=== PATIENT | female | born 1950 | race Hispanic/Latino ===

== ENCOUNTER 2017-09-26 11:51 | Emergency (ER) | payer MEDICARE, OTHER ==
[~2017-09-26 11:51] MED LIST: CHOL200074 PO; CYAN50008 PO; ENAL10TA PO; GEMF600T3 PO; INSLAN SQ; LORA10CA PO; MAGOX PO; METF10004 PO; PIOG30TA10 PO; UBID100C10 PO
== END 2017-09-26 14:32 | disposition home or self-care (01) ==
LOC: EDH 11:51
DX: M25.561 Pain in right knee (principal); E11.9 Type 2 diabetes mellitus without complications; Z90.710 Acquired absence of both cervix and uterus; Z98.890 Other specified postprocedural states
CPT/HCPCS: 73562

== ENCOUNTER → 2019-10-24 | Outpatient (CLI) | payer OTHER ==
[~2019-10-24] MED LIST changes: -GEMF600T3 PO; +GEMF600T5 PO; +METF-446 PO; -METF10004 PO
== END | disposition home or self-care (01) ==
LOC: RAH 10:00
PROVIDERS: ATTEND Internal Medicine
DX: N63.0 Unspecified lump in unspecified breast (principal); R92.8 Other abnormal and inconclusive findings on diagnostic imaging of breast
CPT/HCPCS: 76641; 77066

== ENCOUNTER 2020-04-25 13:54 | Inpatient (IN) | payer OTHER ==
[~2020-04-25] VITALS: Ht 157.5 cm; Wt 91.2 kg
[~2020-04-25 13:54] MED LIST changes: -ENAL10TA PO; +ENAL10TA18 PO
[2020-04-25 14:39] LABS: EOSINOPHILS % (AUTO) 0.4 % (0.0-8.0); HEMATOCRIT 32.6 % (36-48); MEAN CORPUSCULAR HEMOGLOBIN 29.4 pg (27.0-33.0); MEAN CORPUSCULAR HGB CONC 32.8 g/dL (32.0-36.0); MEAN CORPUSCULAR VOLUME 89.6 fL (79-99); MONOCYTES % (AUTO) 5.6 % (3.0-13.0); NEUTROPHILS % (AUTO) 74.3 % (40.0-77.0); PLATELET COUNT (AUTO) 197 K/uL (130-400); RED BLOOD CELL COUNT(AUTO) 3.64 MIL/uL (4.00-5.50); RED CELL DISTRIBUTION WIDTH 13.8 % (11.0-15.5); WHITE BLOOD COUNT (AUTO) 2.7 K/uL (4.8-10.8)
[2020-04-25 14:48] LABS: INR 0.93 (0.85-1.15); PARTIAL THROMBOPLASTIN TIME 37.5 SEC (26.3-35.5); PROTHROMBIN TIME 10.1 SEC (9.6-11.6)
[2020-04-25 15:00] LABS: CARBON DIOXIDE 22 mmol/L (21-32); CHLORIDE 100 mmol/L (101-111); GLOMERULAR FILTR. RATE CALC 58 mL/min (>60); GLUCOSE,RANDOM 284 mg/dL (70-105); POTASSIUM 4.2 mmol/L (3.5-5.1); SODIUM SERUM 134 mmol/L (136-145); UREA NITROGEN, BLOOD 16 mg/dL (7-18)
[2020-04-25] MEDS ORDERED: REMDESIVIR (EUA) 520 200 MG in SODIUM CHLORIDE 0.9% 250 ML IV ONE (15:00)
[2020-04-25] MEDS ORDERED: DiphenhydrAMINE HCL 50 MG/ML VIAL ONE (15:07)
[2020-04-25] MEDS ORDERED: DEXAMETHASONE SOD PHOSPHATE 10MG/ML 1ML VIAL ONE (15:07)
[2020-04-25] MEDS ORDERED: DOXYCYCLINE 100MG+NS 250ML 250 ML IV ONE (15:08)
[2020-04-25] MEDS ORDERED: PROCHLORPERAZINE EDISYLATE 10 MG/2 ML VIAL ONE (15:09)
[2020-04-25 15:10] LABS: ALANINE AMINOTRANSFERASE 25 U/L (12-78); ALBUMIN 3.6 g/dL (3.5-5.0); ASPARTATE AMINOTRANSFERASE 36 U/L (10-37); BILIRUBIN,TOTAL 0.3 mg/dL (0.2-1.0); CREATINE KINASE, TOTAL 44 U/L (21-232); TROPONIN I < 0.04 ng/mL (0.00-0.06)
[2020-04-25 15:32] LABS: MYOGLOBIN 31 ng/mL (10-92)
[2020-04-25 15:36] LABS: ABG BASE EXCESS -6.2 mmol/L (-2.0-3.0); ABG HCO3 18.4 mmol/L (21.0-28.0); ABG OXYGEN SATURATION 98.6 % (95.0-99.0); ABG PCO2 34 mmHg (32-45)
[2020-04-25 16:37] LABS: APPEARANCE,URINE Clear (CLEAR); BILIRUBIN,URINE Negative (NEGATIVE); COLOR,URINE Yellow (YELLOW); GLUCOSE, URINE (UA) Negative (NEGATIVE); KETONES,URINE Negative (NEGATIVE); LEUKOCYTE ESTERASE ,URINE Negative (NEGATIVE); NITRATE,URINE Negative (NEGATIVE); OCCULT BLOOD,URINE Negative (NEGATIVE); PH,URINE 5.5 (5.0-8.0); PROTEIN,URINE Negative (NEGATIVE); UROBILINOGEN,URINE 0.2 mg/dL (0.2-1.0)
[2020-04-25 16:46] LABS: BAND NEUTROPHILS % (MANUAL) 17 % (0-2); LYMPHOCYTES % (MANUAL) 16 % (22-44); MAN.DIFF COMMENT-IMPRESSION MANUAL DIFFERENTIAL; MONOCYTES % (MANUAL) 4 % (2-9); SEGMENTED NEUTROPHILS % 63 % (40-70)
[2020-04-25] MEDS ORDERED: IOHEXOL-350 75 ML VIAL IV ONE (19:14)
[2020-04-25] MEDS ORDERED: ENOXAPARIN SODIUM 40 MG/0.4 ML SYRINGE SQ ONE (20:04)
[2020-04-25] MEDS ORDERED: FAMOTIDINE 20MG TAB 20 MG TAB ONE (20:04)
[2020-04-25] MEDS ORDERED: INSULIN HUMULIN R 100 UNIT/ML 3ML ONE (20:22)
--- NOTE | 2020-04-25 20:50 | NUR ---
PT ARRIVED TO FLOOR AT THIS TIME. NO DISTRESS NOTED. PT AMBULATING. ON NASAL CANNULA 2LPM.
[2020-04-25 21:16] VITALS: BP 135/75
[2020-04-25 23:43] VITALS: BP 141/63
[2020-04-26] MEDS ORDERED: ACET-2247 PO (02:36)
[2020-04-26] MEDS ORDERED: METF-446 PO (02:36)
[2020-04-26] MEDS ORDERED: DOCU-116 PO (02:36)
[2020-04-26] MEDS ORDERED: LORA10TA60 PO (02:36)
[2020-04-26] MEDS ORDERED: PIOG30TA70 PO (02:36)
[2020-04-26] MEDS ORDERED: MULT-1296 PO (02:36)
[2020-04-26] MEDS ORDERED: ATOR10 PO (02:36)
[2020-04-26] MEDS ORDERED: CYAN250014 PO (02:36)
[2020-04-26] MEDS ORDERED: PANT40TA54 PO (02:36)
[2020-04-26] MEDS ORDERED: DULO20CA18 PO (02:36)
[2020-04-26] MEDS ORDERED: GEMF600T5 PO (02:36)
[2020-04-26] MEDS ORDERED: GLUCAGON 1MG KIT 1 MG ML IM PRN (03:00)
[2020-04-26] MEDS ORDERED: DEXTROSE 50%-WATER 50 ML DISP.SYRIN IV PRN (03:00)
[2020-04-26 04:40] VITALS: BP 103/64
[2020-04-26] MEDS ORDERED: INSULIN R PO SS1 SQ SCH (07:30)
[2020-04-26 08:00] VITALS: BP 141/77
[2020-04-26] MEDS ORDERED: ENOXAPARIN SODIUM 30 MG/0.3 ML SQ SCH (09:00)
[2020-04-26] MEDS: DEXAMETHASONE SOD PHOSPHATE 4 MG/ML 1ML VIAL IVP SCH (09:17)
[2020-04-26] MEDS: FAMOTIDINE 20MG TAB 20 MG TAB PO SCH (09:17)
[2020-04-26 11:30] VITALS: BP 108/60
[2020-04-26] MEDS ORDERED: LIDOCAINE HCL-MPF 1% 2ML VIAL IV PRN ×2 (13:30)
[2020-04-26] MEDS ORDERED: PHARMACY COMMUNICATION MISC SCH (13:30)
[2020-04-26] MEDS ORDERED: POTASSIUM CHLORIDE 20MEQ/100ML 100 ML IV PRN ×2 (13:30)
[2020-04-26] MEDS ORDERED: POTASSIUM CHLORIDE 10% ELIXIR 20 MEQ/15 ML UDCUP PO PRN (13:30)
[2020-04-26] MEDS: ACETAMINOPHEN 325 MG TAB PO SCH (14:00)
[2020-04-26] MEDS ORDERED: DOXYCYCLINE 100MG+NS 250ML 250 ML IV SCH (14:30)
[2020-04-26] MEDS ORDERED: COMPOUND IV REFRIGERATED 1 EACH IVSOLN MISC PRN (15:00)
[2020-04-26] MEDS ORDERED: REMDESIVIR (EUA) 520 200 MG in SODIUM CHLORIDE 0.9% 250 ML IV ONE (15:00)
[2020-04-26 15:30] VITALS: BP 110/66
[2020-04-26] MEDS: CEFEPIME HCL 1 GM VIAL IVP SCH ×2 (16:13→22:24)
[2020-04-26] MEDS: DOXYCYCLINE HYCLATE 100 MG TABLET PO SCH ×2 (16:14→20:11)
[2020-04-26] MEDS: INSULIN HUMULIN R 100 UNIT/ML 3ML SQ SCH ×2 (16:30→22:45)
--- NOTE | 2020-04-26 17:30 | NUR ---
SPOKE TO SPOUSE FOR DC PLANNING BRANDI OSBORN STATES PATIENT IS INDEPENDENT, DRIVES, NO DME EXCEPT A BP MACHINE AND A GLUCOMETER- STATES SEES DR. KURT Schrader 3 MOS, NO DC NEEDS ANTICIPATED. SON IS A NURSE AND JUST RECENTLY DISCHARGED FROM HOSPITAL FOR [facility], AND WILL CARE FOR PT AT DISCHARGE. DCP HOME, CM TO FOLLOW Addendum: 04/27/20 at 0946 by JOVANA DONATO RN CM Amended: Links added.
[2020-04-26] MEDS: ATORVASTATIN CALCIUM 10 MG TABLET PO SCH (20:11)
[2020-04-26] MEDS: ENOXAPARIN SODIUM 60 MG/0.6 ML SQ SCH (20:12)
[2020-04-26] MEDS: GEMFIBROZIL 600 MG TABLET PO SCH (21:16)
[2020-04-26 21:37] VITALS: BP 123/72
[2020-04-26] MEDS: ACETAMINOPHEN 325 MG TAB PO PRN (22:49)
--- NOTE | 2020-04-27 00:13 | NUR ---
C/O Headache at 2230 Patient reported having a headache and asked for some Tylenol. She said that her pain level was at a 5. She denies any other problems at this time.
[2020-04-27] MEDS ORDERED: SODIUM CHLORIDE 0.9% 500ML 500 ML IV ONE (02:49)
[2020-04-27] MEDS ORDERED: METHYLPREDNISOLONE SOD SUCC 40MG/ML 1ML ONE (03:47)
[2020-04-27 04:29] VITALS: BP 114/60
[2020-04-27] MEDS: ACETAMINOPHEN 325 MG TAB PO PRN (05:15)
[2020-04-27] MEDS: CEFEPIME HCL 1 GM VIAL IVP SCH ×3 (05:29→21:13)
[2020-04-27] MEDS: INSULIN HUMULIN R 100 UNIT/ML 3ML SQ SCH ×4 (05:31→21:13)
--- NOTE | 2020-04-27 05:32 | NUR ---
Fresh Frozen Plasma, 1 unit administered Patient received 1 of her 2 units of Fresh Frozen Plasma. She tolerated it well. Rubber Cutter was busy and could not go after the second unit. Will let the 7A-7P nurse know, so that it can be given on days. Patient c/o her head hurting and asked for more Tylenol. I explained the amount of Tylenol that is allowed per day and what is scheduled. 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
[2020-04-27] MEDS: PHARMACY COMMUNICATION MISC SCH (06:00)
--- NOTE | 2020-04-27 06:59 | NUR ---
Patient transferred to Room 403 Patient was transferred to room 403 at the second shift supervisor's request. No c/o's or distress noted at this time. Report was given to the night nurse to give to the 7A-7P nurse hat will be arriving.
[2020-04-27 07:00] VITALS: BP 116/68
[2020-04-27 07:26] LABS: HEMATOCRIT 27.8 % (36-48); MEAN CORPUSCULAR HEMOGLOBIN 29.5 pg (27.0-33.0); MEAN CORPUSCULAR HGB CONC 33.5 g/dL (32.0-36.0); MEAN CORPUSCULAR VOLUME 88.3 fL (79-99); RED BLOOD CELL COUNT(AUTO) 3.15 MIL/uL (4.00-5.50); RED CELL DISTRIBUTION WIDTH 13.3 % (11.0-15.5); WHITE BLOOD COUNT (AUTO) 4.2 K/uL (4.8-10.8)
[2020-04-27 07:42] LABS: CARBON DIOXIDE 21 mmol/L (21-32); CHLORIDE 100 mmol/L (101-111); CREATININE 0.8 mg/dL (0.5-1.5); GLOMERULAR FILTR. RATE CALC 76 mL/min (>60); GLUCOSE,RANDOM 212 mg/dL (70-105); PHOSPHORUS 2.3 mg/dL (2.5-4.9); POTASSIUM 3.8 mmol/L (3.5-5.1); SODIUM SERUM 135 mmol/L (136-145); UREA NITROGEN, BLOOD 20 mg/dL (7-18)
[2020-04-27] MEDS: ACETAMINOPHEN 325 MG TAB PO SCH ×3 (09:00→20:39)
[2020-04-27] MEDS: (Duloxetine HCl 20 MG) PO SCH ×2 (09:00→21:30)
[2020-04-27] MEDS: GEMFIBROZIL 600 MG TABLET PO SCH ×2 (09:00→20:39)
[2020-04-27] MEDS: MULTIVITAMIN WITH MINERALS TABLET PO SCH (09:43)
[2020-04-27] MEDS: LORATADINE 10 MG TABLET PO SCH (09:43)
[2020-04-27] MEDS: DOCUSATE SODIUM 100 MG CAP PO SCH (09:43)
[2020-04-27] MEDS: PANTOPRAZOLE SODIUM 40 MG TABLET.DR PO SCH (09:43)
[2020-04-27] MEDS: DEXAMETHASONE SOD PHOSPHATE 4 MG/ML 1ML VIAL IVP SCH (09:43)
[2020-04-27] MEDS: DOXYCYCLINE HYCLATE 100 MG TABLET PO SCH ×2 (09:43→20:36)
[2020-04-27] MEDS: FAMOTIDINE 20MG TAB 20 MG TAB PO SCH (09:43)
[2020-04-27] MEDS: ENOXAPARIN SODIUM 60 MG/0.6 ML SQ SCH ×2 (09:44→20:44)
[2020-04-27 11:00] VITALS: BP 120/71
[2020-04-27] MEDS ORDERED: COMPOUND IV REFRIGERATED 1 EACH IVSOLN MISC PRN (12:15)
[2020-04-27 13:29] LABS: ALBUMIN 3.4 g/dL (3.5-5.0); BILIRUBIN,DIRECT 0.1 mg/dL (0.0-0.3); BILIRUBIN,TOTAL 0.3 mg/dL (0.2-1.0); CREATININE 0.9 mg/dL (0.5-1.5); TOTAL PROTEIN, SERUM 7.3 g/dL (6.0-8.3)
[2020-04-27] MEDS: REMDESIVIR (EUA) 520 100 MG in SODIUM CHLORIDE 0.9% 250 ML IV SCH (15:32)
[2020-04-27 16:00] VITALS: BP 112/70
[2020-04-27 20:00] VITALS: BP 120/69
[2020-04-27] MEDS: ATORVASTATIN CALCIUM 10 MG TABLET PO SCH (20:39)
[2020-04-27 23:41] VITALS: BP 120/69
[2020-04-28] VITALS: BP 124/64
[2020-04-28] MEDS ORDERED: SODIUM CHLORIDE 0.9% 250 ML IV ONE (00:41)
[2020-04-28] MEDS: MAGNESIUM 2GM PREMIX 50ML 50 ML IV PRN (01:10)
[2020-04-28 04:00] VITALS: BP 119/67
[2020-04-28 04:19] LABS: BASOPHILS % (AUTO) 0.3 % (0.0-5.0); HEMATOCRIT 32.8 % (36-48); LYMPHOCYTES % (AUTO) 18.6 % (21.0-51.0); MEAN CORPUSCULAR HEMOGLOBIN 29.4 pg (27.0-33.0); MEAN CORPUSCULAR HGB CONC 33.2 g/dL (32.0-36.0); MEAN CORPUSCULAR VOLUME 88.4 fL (79-99); MONOCYTES % (AUTO) 11.3 % (3.0-13.0); NEUTROPHILS % (AUTO) 68.5 % (40.0-77.0); PLATELET COUNT (AUTO) 297 K/uL (130-400); RED BLOOD CELL COUNT(AUTO) 3.71 MIL/uL (4.00-5.50); RED CELL DISTRIBUTION WIDTH 13.1 % (11.0-15.5); WHITE BLOOD COUNT (AUTO) 3.7 K/uL (4.8-10.8)
[2020-04-28 04:57] LABS: MAGNESIUM 2.1 mg/dL (1.80-2.40); PHOSPHORUS 2.7 mg/dL (2.5-4.9); POTASSIUM 3.4 mmol/L (3.5-5.1)
[2020-04-28] MEDS: INSULIN HUMULIN R 100 UNIT/ML 3ML SQ SCH ×4 (05:32→20:53)
[2020-04-28] MEDS: PHARMACY COMMUNICATION MISC SCH (05:32)
[2020-04-28] MEDS: CEFEPIME HCL 1 GM VIAL IVP SCH ×3 (05:41→20:40)
[2020-04-28] MEDS: ACETAMINOPHEN 325 MG TAB PO SCH ×3 (05:47→20:39)
--- NOTE | 2020-04-28 06:15 | NUR ---
Pt rested throughout the night and received scheduled meds; pts Remdesivir completed at the beginning of shift; stat Mag level drawn = 1.4, Magnesium protocol of 2gm administered; pts current Mag level = 2.1; pt morning blood glucose = 66, pt consumed apple juice, orange juice and nancy crackers and received 0900 Tylenol dose for headache pain; pt is currently resting in bed with eyes closed; no distress noted. LD Li Addendum: 04/28/20 at 0620 by Gil Cardoza RN RN Pt received O2 extension in order to ambulate to bathroom; pts O2 sats remained around 96% throughout the night. LD Li
[2020-04-28 07:00] VITALS: BP 132/73
[2020-04-28] MEDS: (Duloxetine HCl 20 MG) PO SCH ×2 (08:46→20:39)
[2020-04-28] MEDS: DEXAMETHASONE SOD PHOSPHATE 4 MG/ML 1ML VIAL IVP SCH (08:54)
[2020-04-28] MEDS: ENOXAPARIN SODIUM 60 MG/0.6 ML SQ SCH ×2 (08:56→20:40)
[2020-04-28] MEDS: MULTIVITAMIN WITH MINERALS TABLET PO SCH (08:56)
[2020-04-28] MEDS: FAMOTIDINE 20MG TAB 20 MG TAB PO SCH (08:57)
[2020-04-28] MEDS: LORATADINE 10 MG TABLET PO SCH (08:57)
[2020-04-28] MEDS: DOXYCYCLINE HYCLATE 100 MG TABLET PO SCH ×2 (08:57→20:39)
[2020-04-28] MEDS: PANTOPRAZOLE SODIUM 40 MG TABLET.DR PO SCH (08:57)
[2020-04-28] MEDS: DOCUSATE SODIUM 100 MG CAP PO SCH (08:57)
[2020-04-28] MEDS: POTASSIUM CHLORIDE 20 MEQ ERTAB PO PRN (08:57)
[2020-04-28] MEDS: GEMFIBROZIL 600 MG TABLET PO SCH ×2 (09:00→20:39)
[2020-04-28 11:00] VITALS: BP 94/62
--- NOTE | 2020-04-28 11:00 | NUR ---
URINE CX Saima ALLRED NP FOR DR. FAM INFORMED OF URINE CX RESULTS.
[2020-04-28] MEDS: REMDESIVIR (EUA) 520 100 MG in SODIUM CHLORIDE 0.9% 250 ML IV SCH (15:48)
[2020-04-28 16:00] VITALS: BP 105/61
[2020-04-28 20:12] VITALS: BP 108/62
[2020-04-28] MEDS: ATORVASTATIN CALCIUM 10 MG TABLET PO SCH (20:39)
[2020-04-29] VITALS (7 sets, daily range): BP systolic 99–125; BP diastolic 50–72
[2020-04-29] MEDS: PHARMACY COMMUNICATION MISC SCH (05:37)
[2020-04-29] MEDS: INSULIN HUMULIN R 100 UNIT/ML 3ML SQ SCH ×4 (06:04→21:59)
[2020-04-29] MEDS: CEFEPIME HCL 1 GM VIAL IVP SCH ×3 (06:05→20:49)
--- NOTE | 2020-04-29 06:12 | NUR ---
Pt rested throughout the night and denied any complaints and/or pain; pts morning blood glucose = 72, no insulin coverage needed; pt is currently resting in bed with eyes closed, respirations even and unlabored; no distress noted. Guillermo, RN
[2020-04-29] MEDS: DOCUSATE SODIUM 100 MG CAP PO SCH (08:51)
[2020-04-29] MEDS: FAMOTIDINE 20MG TAB 20 MG TAB PO SCH (08:51)
[2020-04-29] MEDS: GEMFIBROZIL 600 MG TABLET PO SCH ×2 (08:51→20:43)
[2020-04-29] MEDS: LORATADINE 10 MG TABLET PO SCH (08:51)
[2020-04-29] MEDS: PANTOPRAZOLE SODIUM 40 MG TABLET.DR PO SCH (08:51)
[2020-04-29] MEDS: DOXYCYCLINE HYCLATE 100 MG TABLET PO SCH ×2 (08:51→20:43)
[2020-04-29] MEDS: MULTIVITAMIN WITH MINERALS TABLET PO SCH (08:52)
[2020-04-29] MEDS: DEXAMETHASONE SOD PHOSPHATE 4 MG/ML 1ML VIAL IVP SCH (08:53)
[2020-04-29] MEDS: ACETAMINOPHEN 325 MG TAB PO SCH ×3 (08:53→20:43)
[2020-04-29] MEDS: ENOXAPARIN SODIUM 60 MG/0.6 ML SQ SCH ×2 (08:54→20:49)
[2020-04-29] MEDS: (Duloxetine HCl 20 MG) PO SCH ×2 (08:55→20:43)
[2020-04-29] MEDS: REMDESIVIR (EUA) 520 100 MG in SODIUM CHLORIDE 0.9% 250 ML IV SCH (15:11)
[2020-04-29] MEDS: ATORVASTATIN CALCIUM 10 MG TABLET PO SCH (20:43)
--- NOTE | 2020-04-29 21:35 | NUR ---
Hosea oncall physician paged at 2100, Ruby Barraza COMPUTER ART INSTRUCTOR returned call at this time and informed of pts BS = 382; physician also informed pts BS drops to 60s-70s in the morning even with a snack throughout the night; physician stated to administer 16u of Humulin R and give pt snack as well to prevent morning hypoglycemia; pt provided with nancy crackers, peanut butter, apple and orange juice and 16u Humulin R administered; no distress noted at this time. Guillermo, RN
[2020-04-30 00:08] VITALS: BP 115/66
[2020-04-30 03:52] LABS: ABG BASE EXCESS -3.5 mmol/L (-2.0-3.0); ABG HCO3 20.7 mmol/L (21.0-28.0); ABG PCO2 35 mmHg (32-45)
[2020-04-30 04:08] VITALS: BP 112/66
[2020-04-30 04:49] LABS: BASOPHILS % (AUTO) 0.2 % (0.0-5.0); EOSINOPHILS % (AUTO) 0.2 % (0.0-8.0); LYMPHOCYTES % (AUTO) 19.2 % (21.0-51.0); MEAN CORPUSCULAR HEMOGLOBIN 29.3 pg (27.0-33.0); MEAN CORPUSCULAR HGB CONC 33.5 g/dL (32.0-36.0); MEAN CORPUSCULAR VOLUME 87.3 fL (79-99); MONOCYTES % (AUTO) 10.3 % (3.0-13.0); PLATELET COUNT (AUTO) 337 K/uL (130-400); RED BLOOD CELL COUNT(AUTO) 3.55 MIL/uL (4.00-5.50); RED CELL DISTRIBUTION WIDTH 13.1 % (11.0-15.5); WHITE BLOOD COUNT (AUTO) 4.4 K/uL (4.8-10.8)
[2020-04-30 05:36] LABS: ALBUMIN 3.4 g/dL (3.5-5.0); BILIRUBIN,DIRECT 0.1 mg/dL (0.0-0.3); BILIRUBIN,TOTAL 0.3 mg/dL (0.2-1.0); MAGNESIUM 1.4 mg/dL (1.80-2.40); POTASSIUM 3.6 mmol/L (3.5-5.1); TOTAL PROTEIN, SERUM 7.8 g/dL (6.0-8.3)
[2020-04-30] MEDS: PHARMACY COMMUNICATION MISC SCH (05:39)
[2020-04-30] MEDS: INSULIN HUMULIN R 100 UNIT/ML 3ML SQ SCH ×4 (05:40→21:55)
[2020-04-30] MEDS: CEFEPIME HCL 1 GM VIAL IVP SCH ×3 (06:06→20:30)
--- NOTE | 2020-04-30 06:56 | NUR ---
Pts BS = 85 this morning and pt received all medications as prescribed, morning insulin held; pt denies any requests and/or complaints at this time. Guillermo RN
[2020-04-30 07:59] VITALS: BP 109/56
[2020-04-30] MEDS: GEMFIBROZIL 600 MG TABLET PO SCH ×2 (08:52→20:30)
[2020-04-30] MEDS: LORATADINE 10 MG TABLET PO SCH (08:52)
[2020-04-30] MEDS: DOXYCYCLINE HYCLATE 100 MG TABLET PO SCH ×2 (08:52→20:30)
[2020-04-30] MEDS: PANTOPRAZOLE SODIUM 40 MG TABLET.DR PO SCH (08:52)
[2020-04-30] MEDS: ENOXAPARIN SODIUM 60 MG/0.6 ML SQ SCH ×2 (08:52→20:30)
[2020-04-30] MEDS: DOCUSATE SODIUM 100 MG CAP PO SCH (08:53)
[2020-04-30] MEDS: FAMOTIDINE 20MG TAB 20 MG TAB PO SCH (08:53)
[2020-04-30] MEDS: MULTIVITAMIN WITH MINERALS TABLET PO SCH (08:53)
[2020-04-30] MEDS: DEXAMETHASONE SOD PHOSPHATE 4 MG/ML 1ML VIAL IVP SCH (08:53)
[2020-04-30] MEDS: ACETAMINOPHEN 325 MG TAB PO SCH ×3 (08:53→20:30)
[2020-04-30] MEDS: (Duloxetine HCl 20 MG) PO SCH ×2 (09:09→20:30)
[2020-04-30 11:38] VITALS: BP 111/66
[2020-04-30] MEDS: MAGNESIUM 2GM PREMIX 50ML 50 ML IV PRN (12:02)
[2020-04-30] MEDS: POTASSIUM CHLORIDE 20 MEQ ERTAB PO PRN ×2 (12:04→13:41)
[2020-04-30] MEDS: REMDESIVIR (EUA) 520 100 MG in SODIUM CHLORIDE 0.9% 250 ML IV SCH (14:27)
[2020-04-30 16:58] VITALS: BP 110/68
[2020-04-30 20:08] VITALS: BP 124/64
[2020-04-30] MEDS: ATORVASTATIN CALCIUM 10 MG TABLET PO SCH (20:30)
[2020-05-01 00:08] VITALS: BP 105/57
[2020-05-01 04:08] VITALS: BP 103/68
[2020-05-01 05:12] LABS: BASOPHILS % (AUTO) 0.4 % (0.0-5.0); HEMATOCRIT 30.3 % (36-48); LYMPHOCYTES % (AUTO) 19.6 % (21.0-51.0); MEAN CORPUSCULAR HEMOGLOBIN 29.5 pg (27.0-33.0); MEAN CORPUSCULAR HGB CONC 33.7 g/dL (32.0-36.0); MEAN CORPUSCULAR VOLUME 87.6 fL (79-99); MONOCYTES % (AUTO) 11.2 % (3.0-13.0); NEUTROPHILS % (AUTO) 63.1 % (40.0-77.0); PLATELET COUNT (AUTO) 316 K/uL (130-400); RED BLOOD CELL COUNT(AUTO) 3.46 MIL/uL (4.00-5.50); RED CELL DISTRIBUTION WIDTH 13.2 % (11.0-15.5); WHITE BLOOD COUNT (AUTO) 4.9 K/uL (4.8-10.8)
[2020-05-01 05:38] LABS: ALBUMIN 3.2 g/dL (3.5-5.0); BILIRUBIN,TOTAL 0.3 mg/dL (0.2-1.0); CREATININE 0.8 mg/dL (0.5-1.5); MAGNESIUM 2.1 mg/dL (1.80-2.40); TOTAL PROTEIN, SERUM 7.3 g/dL (6.0-8.3)
[2020-05-01] MEDS: PHARMACY COMMUNICATION MISC SCH (06:00)
[2020-05-01] MEDS: CEFEPIME HCL 1 GM VIAL IVP SCH ×2 (06:14→14:35)
[2020-05-01] MEDS: INSULIN HUMULIN R 100 UNIT/ML 3ML SQ SCH ×3 (06:15→17:12)
[2020-05-01 08:00] VITALS: BP 99/64
[2020-05-01] MEDS: LORATADINE 10 MG TABLET PO SCH (09:54)
[2020-05-01] MEDS: DOCUSATE SODIUM 100 MG CAP PO SCH (09:54)
[2020-05-01] MEDS: FAMOTIDINE 20MG TAB 20 MG TAB PO SCH (09:54)
[2020-05-01] MEDS: DEXAMETHASONE SOD PHOSPHATE 4 MG/ML 1ML VIAL IVP SCH (09:54)
[2020-05-01] MEDS: PANTOPRAZOLE SODIUM 40 MG TABLET.DR PO SCH (09:54)
[2020-05-01] MEDS: DOXYCYCLINE HYCLATE 100 MG TABLET PO SCH (09:55)
[2020-05-01] MEDS: GEMFIBROZIL 600 MG TABLET PO SCH (09:55)
[2020-05-01] MEDS: ACETAMINOPHEN 325 MG TAB PO SCH ×2 (09:55→14:37)
[2020-05-01] MEDS: ENOXAPARIN SODIUM 60 MG/0.6 ML SQ SCH (09:56)
[2020-05-01] MEDS: MULTIVITAMIN WITH MINERALS TABLET PO SCH (09:56)
[2020-05-01] MEDS: (Duloxetine HCl 20 MG) PO SCH (10:13)
[2020-05-01 12:05] VITALS: BP 103/58
[2020-05-01 14:00] VITALS: BP 136/73
[2020-05-01] MEDS ORDERED: DEXA6TAB PO (15:20)
--- NOTE | 2020-05-01 16:45 | NUR ---
cm note spoke to pt and informed of md orders for o2 continous at home. pt agreeable to loaner O2 tank and concentrator and will return back to hospital when she receives her own equipment informed referral was made to [facility] dimensions. [phone]. pt verbalizes understanding. updated primary nurse Cassie Purcell RN
--- NOTE | 2020-05-01 18:35 | NUR ---
DISCHARGE INSTRUCTIONS PATIENT GIVEN DISCHARGE INSTRUCTION AND VERBALIZED UNDERSTANDING, IV REMOVED WITH CATHETER INTACT AND SITE DRESSED., RESPIRATORY O2 EVALUATION FOR CONTINUOUS O2 FOR HOME USE COMPLETED AND [facility] LOANER TANK AND O2 CONCENTRATOR BROUGHT TO FLOOR AND FORM COMPLETED . PATIENT UNDERSTANDS THE WHEN HER O2 SUPPLIES GET DELIVERED TO HER HOUSE THAT SHE WILL NEED TO RETURN [facility] TANK AND CONCENTRATOR . REVIEWED MEDICATION AND FOLLOW-UP APPOINTMENT THAT SHE WILL NEED TO SCHEDULE DUE TO THE CLINIC BEING CLOSED PRIOR TO DISCHARGE ORDERS RECEIVED. PATIENT DENIED PAIN AT THIS TIME. NEW RX FOR DEXAMETHASONE 6MG PO DAILY NEXT DOSE 05/02/20 SENT TO [facility] ON [address]. NO QUESTIONS OR CONCERNS AT THIS TIME. PATIENT CALLED FOR RIDE
== END 2020-05-01 19:00 | disposition home or self-care (01) | DRG 177 ==
LOC: EDH 13:54 → OBSVTOIN 16:35 → EDHIP 16:35 → 4CH 20:56 → 4AH 04-27 07:00
PROVIDERS: ADMIT Internal Medicine Critical Care Medicine; ATTEND Internal Medicine Critical Care Medicine
PROC: XW13325 Transfusion of Convalescent Plasma (Nonautologous) into Peripheral Vein, Percutaneous Approach, New Technology Group 5 (ICD-10-PCS; principal; 2020-04-25)
PROC: XW033E5 Introduction of Remdesivir Anti-infective into Peripheral Vein, Percutaneous Approach, New Technology Group 5 (ICD-10-PCS; 2020-04-25)
DX: U07.1 COVID-19 (principal); J96.01 Acute respiratory failure with hypoxia; D72.819 Decreased white blood cell count, unspecified; E11.9 Type 2 diabetes mellitus without complications; E78.5 Hyperlipidemia, unspecified; E78.1 Pure hyperglyceridemia; I10 Essential (primary) hypertension; F32.9 Major depressive disorder, single episode, unspecified; Z79.4 Long term (current) use of insulin; Z79.899 Other long term (current) drug therapy
CPT/HCPCS: 36415; 36600; 71045; 71275; 80048; 80053; 80076; 81003; 82550; 82565; 82803; 82947; 82948; 83605; 83735; 83874; 84100; 84145; 84484; 85025; 85027; 85378; 85610; 85730; 86140; 86850; 86900; 86901; 86927; 87040; 87077; 87088; 87186; 87804; 93005; 93970; 94760; 99291; G0378; J0692; J0780; J1100; J1200; J1650; J1815; J2920; J3475; J3490; J7040; J7050; Q9967

== ENCOUNTER → 2021-05-19 | Outpatient (CLI) | payer OTHER ==
[~2021-05-19] MED LIST changes: +ACET-2247 PO; +ATOR10 PO; -CHOL200074 PO; -CYAN50008 PO; +DEXA6TAB PO; +DOCU-116 PO; +DULO20CA18 PO; -ENAL10TA18 PO; -GEMF600T5 PO; +GEMF600T89 PO; -INSLAN SQ; -LORA10CA PO; +LORA10TA60 PO; -MAGOX PO; -METF-446 PO; +MULT-1296 PO; +PANT40TA54 PO; -PIOG30TA10 PO; -UBID100C10 PO
== END | disposition home or self-care (01) ==
LOC: RAH 08:51
PROVIDERS: ATTEND Internal Medicine
DX: N26.1 Atrophy of kidney (terminal) (principal); N18.31 Chronic kidney disease, stage 3a
CPT/HCPCS: 76770; 93975

== ENCOUNTER → 2022-06-10 | Outpatient (CLI) | payer OTHER | END | disposition home or self-care (01) | LOC: RAH 15:14 | PROVIDERS: ATTEND Internal Medicine | DX: R22.42 Localized swelling, mass and lump, left lower limb (principal); E11.42 Type 2 diabetes mellitus with diabetic polyneuropathy; E11.51 Type 2 diabetes mellitus with diabetic peripheral angiopathy without gangrene; I12.9 Hypertensive chronic kidney disease with stage 1 through stage 4 chronic kidney disease, or unspecified chronic kidney disease; E11.22 Type 2 diabetes mellitus with diabetic chronic kidney disease; N18.31 Chronic kidney disease, stage 3a; L60.8 Other nail disorders; D72.819 Decreased white blood cell count, unspecified; E87.5 Hyperkalemia; K76.0 Fatty (change of) liver, not elsewhere classified; K57.31 Diverticulosis of large intestine without perforation or abscess with bleeding; Z71.89 Other specified counseling; Z79.899 Other long term (current) drug therapy | CPT/HCPCS: 76882 ==

== ENCOUNTER → 2022-07-12 | Outpatient (CLI) | payer OTHER ==
[~2022-07-12] MED LIST changes: +GADOTERATE MEGLUMINE 10 MMOL/20 ML VIAL IV ONE
== END | disposition home or self-care (01) ==
LOC: RAH 12:16
PROVIDERS: ATTEND Internal Medicine
DX: R22.9 Localized swelling, mass and lump, unspecified (principal)
CPT/HCPCS: 73723; A9575

== ENCOUNTER 2023-07-05 06:10 | Day surgery (SDC) | payer OTHER ==
[2023-07-05] VITALS (12 sets, daily range): BP systolic 115–149; BP diastolic 57–89; PULSE 71–96; RESP 15–16
[~2023-07-05] VITALS: Ht 157.5 cm; Wt 95.3 kg
[~2023-07-05 06:10] MED LIST changes: -ACET-2247 PO; -ATOR10 PO; +CETI10TA57 PO; -DEXA6TAB PO; -DOCU-116 PO; +FAMO-136 PO; +FERR-72 PO; -GADOTERATE MEGLUMINE 10 MMOL/20 ML VIAL IV ONE; -LORA10TA60 PO; +MAGN400T40 PO; +METF-446 PO; +METO-408 PO; +OMEP40CA21 PO; -PANT40TA54 PO; +PIOG30TA70 PO; +ROSU5TAB12 PO; +VITMIN SL; +folic acid PO; +vitamin d3 PO
[2023-07-05] MEDS ORDERED: 0.9%NACL 1000ML 1,000 ML IV ONE (06:23)
[2023-07-05] MEDS ORDERED: PROPOFOL 10 MG/ML 20ML VIAL IV ONE (07:31)
== END 2023-07-05 08:52 | disposition home or self-care (01) ==
LOC: ENDO 06:10 → DAH 06:10 → ENDO 08:52
PROVIDERS: ATTEND Internal Medicine Gastroenterology
DX: R93.3 Abnormal findings on diagnostic imaging of other parts of digestive tract (principal); K57.30 Diverticulosis of large intestine without perforation or abscess without bleeding; R19.7 Diarrhea, unspecified; I10 Essential (primary) hypertension; E11.9 Type 2 diabetes mellitus without complications; K21.9 Gastro-esophageal reflux disease without esophagitis; G43.909 Migraine, unspecified, not intractable, without status migrainosus; E78.5 Hyperlipidemia, unspecified; Z90.710 Acquired absence of both cervix and uterus; Z98.890 Other specified postprocedural states; Z79.84 Long term (current) use of oral hypoglycemic drugs; Z79.899 Other long term (current) drug therapy
CPT/HCPCS: 82948 ×2; 45378; J7030 ×2; J2704; A4620; A4215 ×2; A4223; A7002; A4222; A4221; A4663; A4216; A4606; J3490

== ENCOUNTER → 2024-05-02 | Outpatient (CLI) | payer OTHER ==
[~2024-05-02] MED LIST changes: -ROSU5TAB12 PO; +ROSU5TAB43 PO
== END | disposition home or self-care (01) ==
LOC: RAH 15:37
PROVIDERS: ATTEND Internal Medicine
DX: Z12.31 Encounter for screening mammogram for malignant neoplasm of breast (principal); R92.333 Mammographic heterogeneous density, bilateral breasts; R92.1 Mammographic calcification found on diagnostic imaging of breast
CPT/HCPCS: 77067

== ENCOUNTER 2024-09-02 06:33 | Day surgery (SDC) | payer OTHER ==
[2024-08-29 12:08] LABS: BASOPHILS # (AUTO) 0.03 K/uL (0.00-0.20); BASOPHILS % (AUTO) 0.9 % (0.0-5.0); EOSINOPHILS # (AUTO) 0.05 K/uL (0.00-0.70); EOSINOPHILS % (AUTO) 1.5 % (0.0-8.0); IMMATURE GRANULOCYTE ABSOLUTE 0.02 K/uL (0-1); LYMPHOCYTES # (AUTO) 1.5 K/uL (1.0-4.8); LYMPHOCYTES % (AUTO) 43.8 % (21.0-51.0); MEAN CORPUSCULAR HEMOGLOBIN 29.7 pg (27.0-33.0); MEAN CORPUSCULAR HGB CONC 30.9 g/dL (32.0-36.0); MEAN CORPUSCULAR VOLUME 96.2 fL (79-99); MONOCYTES # (AUTO) 0.3 K/uL (0.1-1.0); MONOCYTES % (AUTO) 8.4 % (3.0-13.0); NEUTROPHILS # (AUTO) 1.5 K/uL (1.8-7.7); NEUTROPHILS % (AUTO) 44.8 % (40.0-77.0); PLATELET COUNT (AUTO) 238 K/uL (130-400); RED BLOOD CELL COUNT(AUTO) 3.43 MIL/uL (4.00-5.50); RED CELL DISTRIBUTION WIDTH 13.8 % (11.0-15.5); WHITE BLOOD COUNT (AUTO) 3.3 K/uL (4.8-10.8)
[2024-08-29 12:12] VITALS: BP 143/39; PULSE 81; RESP 18; TEMP 97.2
[2024-08-29 12:20] LABS: INR 1.02 (0.85-1.15)
[2024-08-29 12:22] LABS: ALBUMIN 3.9 g/dL (3.5-5.0); BILIRUBIN,TOTAL 0.3 mg/dL (0.2-1.0); CREATININE 1.1 mg/dL (0.5-1.0); PARTIAL THROMBOPLASTIN TIME 31.4 SEC (26.3-35.5); POTASSIUM 5.7 mmol/L (3.5-5.1); TOTAL PROTEIN, SERUM 7.6 g/dL (6.0-8.3)
--- NOTE | 2024-08-29 13:02 | EKG ---
[facility] Test Date: 2024-08-29 Test Time: 12:53:06 Pat Name: MARY KATE WHITLOCK Department: [facility] Room: Gender: F Buhr Dresser: [id number] : 1950 Requested By: SINDHU CEDEÑO Order Number: [id number] Reading MD: Yaya Chung Measurements Intervals [place] Rate: 81 P: 66 NC: 189 QRS: 1 QRSD: 81 T: 29 QT: 348 QTc: 403 Interpretive Statements Sinus rhythm Compared to ECG 05/26/2023 16:29:16 No significant changes Electronically Signed On 09-01-2024 17:27:27 CLOUD ADMINISTRATOR by Yaya Chung Please click the below link to view image of tracing.
--- NOTE | 2024-08-30 09:56 | NUR ---
RE: LABS REPORTED BMP RESULTS TO DR VILLA, RECEIVED ORDERS TO REPEAT POTASSIUM ON DOS.
[2024-09-02] VITALS (10 sets, daily range): BP systolic 126–149; BP diastolic 69–83; PULSE 76–94; RESP 12–19; TEMP 97–97.6
[~2024-09-02] VITALS: Ht 154.9 cm; Wt 100.1 kg
[2024-09-02] MEDS: LIDOCAINE HCL 1% 20 ML VIAL ONE
[2024-09-02] MEDS: BUPIvacaine/PF 0.25% 30ML VIAL IJ ONE
[~2024-09-02 06:33] MED LIST changes: -ROSU5TAB43 PO; +ROSU5TAB51 PO; -vitamin d3 PO
[2024-09-02] MEDS: 0.9%NACL 1000ML 1,000 ML IV ONE (06:43)
[2024-09-02] MEDS: ceFAZolin SODIUM 1 GM VIAL ONE (06:44)
[2024-09-02] MEDS ORDERED: acetaMINOPHEN 100 ML ONE (07:23)
[2024-09-02] MEDS ORDERED: FAMOTIDINE 20MG VIAL IV ONE (07:23)
[2024-09-02] MEDS ORDERED: LIDOCAINE PF 100MG/5ML (2%) SYRINGE 5ML ONE (07:27)
[2024-09-02] MEDS ORDERED: FENTanyl CITRate PF 50 MCG/1 ML 2ML VIAL ONE (07:28)
[2024-09-02] MEDS ORDERED: MIDAZOLAM HCL 1 MG/ML 2ML VIAL ONE (07:28)
[2024-09-02] MEDS ORDERED: proPOFol 10 MG/ML 20ML VIAL IV ONE ×2 (07:29→07:54)
[2024-09-02] MEDS ORDERED: ondanSETRON 4MG INJ ONE (07:49)
[2024-09-02] MEDS ORDERED: dexaMETHasone SOD PHOSPHATE 10MG/ML 1ML VIAL ONE (07:49)
--- NOTE | 2024-09-02 08:27 | OP ---
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 Left lateral external hemorrhoid] SYNOPSIS: [This is a 73-year-old female who presents to clinic with significant perianal pain, perianal drainage for months. Examination reveal a fistula in ano. After extensive discussion with the patient she granted consent for anal fistulotomy and all other indicated procedures. She was also complaining of a large external hemorrhoid that was symptomatic, and making her perianal hygiene quite challenging. Risks, recuperation and alternatives were explained in detail to the patient who granted consent] PROCEDURE: [Complex anal fistulotomy. Excision of external hemorrhoid.] ESTIMATED BLOOD LOSS: [Minimal] INDICATIONS: [Fistula in anal and symptomatic hemorrhoidal disease] DESCRIPTION OF PROCEDURE: [The patient was identified in the holding area, transferred to the OR and placed supine on the operative table. Venodyne boots were placed for DVT prophylaxis. 1 g of IV Ancef was given within the hour of the skin incision. After MAC was obtained she was placed in lithotomy position with great care taken to pad all pressure points. She was prepped and draped in the usual sterile fashion. Time-out conducted an anal block given with 0.25% Marcaine and 1% lidocaine with epinephrine. The fistula tract was readily identified and a probe was passed from the external to the internal opening revealing an interesting enteric fistula in anal. This was unroofed with the Bovie cautery and the base of the fistula cauterized. The internal opening was below the dentate line. A sphincter involvement was minimal. Afterwards the large external hemorrhoid was identified on the left lateral region. It was grasped by the apex and excised with great care taken not to injure the underlying sphincters. Anal dermal junction was then approximated with chromic sutures. Area was irrigated and aspirated clear, hemostasis noted to be excellent. Surgicel was packed until the fistula tract. A sterile dressing was applied. There were no complications. I was present and scrubbed for the entire case. All counts were correct.] SINDHU THOMAS MD Sep 02, 2024 08:27
--- NOTE | 2024-09-02 09:24 | NUR ---
Patient aox4. Denies c/o pain or discomfort. Surgical 4x4"s clean, dry and intact. Voiced understanding to surgical site precautions and follow up expectations. Ambulated to bathroom with standby assist. Voided large amount of clear urine. PIV discontinued with catheter tip intact. Full and complete Discharge instructions given to Patient and Son All questions answered. W/C to POV with Son to Home.
== END 2024-09-02 09:35 | disposition home or self-care (01) ==
LOC: DAH 06:33
PROVIDERS: ATTEND Surgery
DX: K60.30 Anal fistula, unspecified (principal); K64.4 Residual hemorrhoidal skin tags; K62.5 Hemorrhage of anus and rectum; E78.5 Hyperlipidemia, unspecified; E11.9 Type 2 diabetes mellitus without complications; M19.90 Unspecified osteoarthritis, unspecified site; G43.909 Migraine, unspecified, not intractable, without status migrainosus; Z90.710 Acquired absence of both cervix and uterus; Z94.0 Kidney transplant status; Z79.01 Long term (current) use of anticoagulants; Z98.890 Other specified postprocedural states; Z79.4 Long term (current) use of insulin; Z79.899 Other long term (current) drug therapy
CPT/HCPCS: 80053; 85025; 85610; 85730; 36415 ×2; 93005; 46270; 46999; 84132; 82948 ×2; 88304; A6260; A4663; J7120; J3490; J3010; J0690; J1100; J7030; J0665; J2003; J2250; J2704 ×2; J2405; A4930; A4215; A4223; A4222; A4221

== ENCOUNTER → 2024-10-14 | Outpatient (CLI) | payer OTHER ==
--- NOTE | 2024-10-17 08:22 | HMCSR ---
APPROVED REPORT EXAM: Two-dimensional and M-mode echocardiogram with Doppler and color Doppler. INDICATION ICD: Essential hypertension I10 2D Dimensions RVDd3.9 cmLVEF(%)59.2 (>50%)LVED Vol(simp.)80.9 mL IVSd0.7 (0.7-1.1cm)FS(%)31 %LVES Vol(simp.)32.8 mL LVDd4.8 (3.8-5.6cm)LA (2D)2.7 (1.6-4.0cm)LVEF(%, simp.)60 % PWd1.1 (0.7-1.1cm)Ao Root(2D)2.9 (2.0-3.7cm)LA ESV INDEX (4CH)15.50 mL/m2 IVSs1.4 cmLVOT diam2.0 (1.8-2.4cm)LA ESV INDEX (2CH)25.90 mL/m2 LVDs3.3 (2.5-4.0cm)LA ESV INDEX (BP)20.10 mL/m2 PWs1.6 cm M-Mode Dimensions EPSS0.8 cm LA (MM)2.6 (1.6-4.0cm) Ao Root(MM)3.1 (2.0-3.7cm) Aortic Valve AoV VTI0.3 mAo Mean GR4.0 mmHgLVOT VTI0.18 m ELVIE (VMAX)1.9 cm2AVA (VTI) 1.9 cm2 Mitral Valve MV E Vmax71.3 cm/sDECEL Ynpv364 ms MV A Vmax63.1 cm/sP 1/2 T64 ms E/A ratio1.1MVA (PHT)3.4 cm2 TDI E/E' Mxmoik62.6E/E' Lateral7.8 Medial E' Peak V4.90 cm/sLateral E' Peak V9.20 cm/s Tricuspid Valve RAP (EST) 8 mmHgRVSP8.0 mmHg Left Ventricle Left ventricular cavity size is normal. There is normal LV segmental wall motion. There is normal lef t ventricular wall thickness. LVEF is 60-65%. No left ventricle thrombus noted on this study. Indeter minate diastolic dysfunction. Right Ventricle The right ventricle is normal size. The right ventricular systolic function is normal. Atria The left atrium size is normal. The right atrium size is normal. Aortic Valve The aortic valve is normal in structure and function. No aortic regurgitation is present. There is no aortic valvular stenosis. Mitral Valve Mitral valve leaflets appear normal. There is no mitral valve regurgitation noted. There is no mitral valve stenosis. Tricuspid Valve The tricuspid valve is normal in structure and function. There is trivial tricuspid valve regurgitati on noted. Pulmonic Valve The pulmonary valve is normal in structure and function. There is no pulmonic valvular regurgitation. Great Vessels The aortic root is normal in size. IVC is normal in size and collapses <50% with inspiration. Pericardium The pericardium appears normal. No pericardial effusion. Conclusion Left ventricular cavity size is normal. LVEF is 60-65%. The right ventricle is normal size. The left atrium size is normal. The aortic valve is normal in structure and function. Mitral valve leaflets appear normal. There is no mitral valve regurgitation noted. There is no mitral valve stenosis. The tricuspid valve is normal in structure and function. There is no pulmonic valvular regurgitation. The aortic root is normal in size. IVC is normal in size and collapses <50% with inspiration. The pericardium appears normal. No pericardial effusion.
== END | disposition home or self-care (01) ==
LOC: RAH 13:35
PROVIDERS: ATTEND Internal Medicine Cardiovascular Disease
DX: I07.1 Rheumatic tricuspid insufficiency (principal); I10 Essential (primary) hypertension
CPT/HCPCS: 93306